=== PATIENT | female | born 1985 | race Caucasian/White ===

== ENCOUNTER 2021-10-26 17:05 | Emergency (ER) | payer OTHER ==
[2021-10-26 17:30] VITALS: BP 121/73; PULSE 59; TEMP 98.1; BMI 23.8
[2021-10-26] MEDS ORDERED: diazePAM 5 MG TABLET PO ONE (18:30)
[2021-10-26] MEDS ORDERED: KETOROLAC TROMETHAMINE 30 MG/1 ML VIAL IM ONE (18:30)
[2021-10-26] MEDS ORDERED: KETOROLAC TROMETHAMINE 30 MG/1 ML VIAL ONE (18:32)
[2021-10-26] MEDS ORDERED: diazePAM 5 MG TABLET ONE (18:33)
== END 2021-10-26 20:18 | disposition home or self-care (01) ==
LOC: JER 17:05 → JERFT 17:05
PROC: 3E023GC Introduction of Other Therapeutic Substance into Muscle, Percutaneous Approach (ICD-10-PCS; principal; 2021-10-26)
DX: S16.1XXA Strain of muscle, fascia and tendon at neck level, initial encounter (principal); Y99.9 Unspecified external cause status
CPT/HCPCS: 96372; 99284-25